=== PATIENT | female | born 1970 | race African-American/Black ===

== ENCOUNTER 2016-11-06 15:07 | Emergency (ER) | payer MEDICARE, MEDICAID ==
[~2016-11-06] VITALS: Ht 167.6 cm; Wt 85.0 kg
--- NOTE | 2016-11-06 15:25 | PD ---
Physical Exam Date Seen by Provider: Nov 06, 2016 Time Seen by Provider: 15:24 MDM Supervised Visit with RYAN: No Narrative Course 38-year-old female presents to the ED for evaluation of one year history of 6/ 10 generalized abdominal pain. Denies nausea, vomiting, diarrhea. Also complains of chronic headaches. Vitals reviewed. Patient seen in triage, awaiting bed placement. Laurence Vinson Nov 06, 2016 15:25
[2016-11-06] MEDS ORDERED: RETR100C PO (16:22)
[2016-11-06] MEDS ORDERED: EMTR1TAB PO (16:22)
[2016-11-06] MEDS ORDERED: EMTR1TAB5 PO (16:22)
[2016-11-06] MEDS ORDERED: AMLO5 PO (16:22)
[2016-11-06] MEDS ORDERED: RITO100 PO (16:23)
[2016-11-06 16:34] VITALS: BP 126/76; PULSE 89; RESP 17; TEMP 97.8; O2SAT 100
[2016-11-06] MEDS ORDERED: SODIUM CHLOR 0.9% 1000 ML INJ 1,000 ML IV SCH (17:25)
[2016-11-06 17:30] VITALS: PULSE 76; RESP 17; O2SAT 100
[2016-11-06] MEDS ORDERED: FAMOTIDINE 20 MG/2 ML VIAL IV PUSH ONE (17:30)
[2016-11-06] MEDS ORDERED: KETOROLAC TROMETHAMINE 30 MG/ML (IVP) VIAL IVP ONE (17:30)
[2016-11-06] MEDS ORDERED: SODIUM CHLORIDE 0.9% FLUSH 10 ML FLUSH IV FLUSH PRN (17:30)
[2016-11-06 18:18] LABS: AUTOMATED NEUTROPHIL # 8.1 TH/MM3 (1.8-7.7); BASOPHIL % 0.4 % (0.0-2.0); EOSINOPHIL # 0.2 TH/MM3 (0-0.4); EOSINOPHIL % 1.4 % (0.0-4.0); HEMATOCRIT 40.6 % (35.0-46.0); HEMO FLAGS DIFF FINAL; LYMPH % 16.9 % (9.0-44.0); LYMPHOCYTE # 1.9 TH/MM3 (1.0-4.8); MEAN CELL VOLUME 89.9 FL (80.0-100.0); MEAN CORPUSCULAR HEMOGLOBIN 29.8 PG (27.0-34.0); MEAN CORPUSCULAR HGB CONC 33.2 % (32.0-36.0); NEUT % 71.3 % (16.0-70.0); PLATELET COUNT 208 TH/MM3 (150-450); RED BLOOD COUNT 4.51 MIL/MM3 (4.00-5.30); RED CELL DISTRIBUTION WIDTH 13.5 % (11.6-17.2); WHITE BLOOD COUNT 11.4 TH/MM3 (4.0-11.0)
--- NOTE | 2016-11-06 18:22 | PD ---
HPI Chief Complaint: Abdominal Pain Time Seen by Provider: 17:14 Travel History International Travel<30 days: No Contact w/Intl Traveler<30days: No Traveled to known affect area: No History of Present Illness HPI Patient is a 46 year old female, with history of psychiatric illness, who comes in complaining of abdominal pain. She says she is homeless and has no place to stay. She says she has had the pain for the past month. She says she has seen multiple doctors and had multiple tests done, but no one can tell her what is wrong. She says "I feel like something is in my uterus," but she has had a hysterectomy. She denies any burning on urination. She denies fever or chills or nausea or vomiting. PFSH Past Medical History Diminished Hearing: No Immune Disorder: Yes (HIV 1999) Medical other: Yes Tetanus Vaccination: < 5 Years Influenza Vaccination: Yes ?: Not : 2 Para: 2 Past Surgical History Gynecologic Surgery: Yes Hysterectomy: Yes Social History Alcohol Use: Yes (ocassionally) Tobacco Use: Yes (1/2 pack per day) Substance Use: No (in the past ) Allergies-Medications (Allergen,Severity, Reaction): Coded Allergies: No Known Allergies (Unverified , 11/06/16) Reported Meds & Prescriptions Reported Meds & Active Scripts Active Reported Norvir (Ritonavir) 100 Mg Cap 300 Mg PO BID Truvada (Emtricitabine-Tenofovir Disoproxil Fumarate) 100-150 Mg Tab 1 Tab PO DAILY Retrovir (Zidovudine) 100 Mg Cap 300 Mg PO Q12HR *Fill this prescription for a 23 day supply of Retrovir ONLY if advised to do so by either [facility] OR the Emergency Department.* Review of Systems Except as stated in HPI: all other systems reviewed are Neg General / Constitutional: No: Fever, Chills HENT: No: Headaches, Lightheadedness Cardiovascular: No: Chest Pain or Discomfort Respiratory: No: Shortness of Breath Gastrointestinal: Positive: Abdominal Pain, No: Nausea, Vomiting Genitourinary: No: Dysuria Musculoskeletal: No: Myalgias, Edema Skin: No Rash, No Change in Pigmentation Neurologic: No: Weakness, Dizziness Physical Exam Narrative GENERAL: Awake and alert, in no acute distress. SKIN: Focused skin assessment warm/dry. HEAD: Atraumatic. Normocephalic. EYES: Pupils equal and round. No scleral icterus. Extraocular movements intact. ENT: Mucous membranes pink and moist. NECK: Trachea midline. No JVD. CARDIOVASCULAR: Regular rate and rhythm. No murmur appreciated. RESPIRATORY: No accessory muscle use. Clear to auscultation. Breath sounds equal bilaterally. GASTROINTESTINAL: Abdomen soft, non-tender, nondistended. No CVA tenderness. MUSCULOSKELETAL: No obvious deformities. No clubbing. No cyanosis. No edema. NEUROLOGICAL: Awake and alert. No obvious cranial nerve deficits. Motor grossly within normal limits. Normal speech. PSYCHIATRIC: Appropriate mood and affect; insight and judgment normal. Data Data Last Documented VS Vital Signs Date Time Temp Pulse Resp B/P (MAP) Pulse Ox O2 Delivery O2 Flow Rate FiO2 11/06/16 18:56 17 11/06/16 17:30 76 100 11/06/16 16:34 97.8 Room Air Orders Orders Complete Blood Count With Diff (11/06/16 17:25) Comprehensive Metabolic Panel (11/06/16 17:25) Lipase (11/06/16 17:25) Urinalysis - C+S If Indicated (11/06/16 17:25) Iv Access Insert/Monitor (11/06/16 17:25) Ecg Monitoring (11/06/16 17:25) Oximetry (11/06/16 17:25) Sodium Chlor 0.9% 1000 Ml Inj (Ns 1000 M (11/06/16 17:25) Sodium Chloride 0.9% Flush (Ns Flush) (11/06/16 17:30) Famotidine Inj (Pepcid Inj) (11/06/16 17:30) Ketorolac Inj (Toradol Inj) (11/06/16 17:30) Urine Culture (11/06/16 17:50) Labs Laboratory Tests Test 11/06/16 17:50 White Blood Count 11.4 TH/MM3 Red Blood Count 4.51 MIL/MM3 Hemoglobin 13.5 GM/DL Hematocrit 40.6 % Mean Corpuscular Volume 89.9 FL Mean Corpuscular Hemoglobin 29.8 PG Mean Corpuscular Hemoglobin Concent 33.2 % Red Cell Distribution Width 13.5 % Platelet Count 208 TH/MM3 Mean Platelet Volume 9.9 FL Neutrophils (%) (Auto) 71.3 % Lymphocytes (%) (Auto) 16.9 % Monocytes (%) (Auto) 10.0 % Eosinophils (%) (Auto) 1.4 % Basophils (%) (Auto) 0.4 % Neutrophils # (Auto) 8.1 TH/MM3 Lymphocytes # (Auto) 1.9 TH/MM3 Monocytes # (Auto) 1.1 TH/MM3 Eosinophils # (Auto) 0.2 TH/MM3 Basophils # (Auto) 0.0 TH/MM3 CBC Comment DIFF FINAL Differential Comment Urine Color YELLOW Urine Turbidity HAZY Urine pH 5.5 Urine Specific [place] 1.031 Urine Protein TRACE mg/dL Urine Glucose (UA) NEG mg/dL Urine Ketones 10 mg/dL Urine Occult Blood NEG Urine Nitrite NEG Urine Bilirubin NEG Urine Urobilinogen LESS THAN 2.0 MG/DL Urine Leukocyte Esterase MOD Urine WBC 16 /hpf Urine Squamous Epithelial Cells 30 /hpf Urine Bacteria MANY /hpf Urine Mucus MANY /lpf Microscopic Urinalysis Comment CULTURE INDICATED Blood Urea Nitrogen 14 MG/DL Creatinine 0.84 MG/DL Random Glucose 83 MG/DL Total Protein 8.4 GM/DL Albumin 4.1 GM/DL Calcium Level 8.9 MG/DL Alkaline Phosphatase 124 U/L Aspartate Amino Transf (AST/SGOT) 20 U/L Alanine Aminotransferase (ALT/SGPT) 24 U/L Total Bilirubin 1.9 MG/DL Sodium Level 135 MEQ/L Potassium Level 4.0 MEQ/L Chloride Level 103 MEQ/L Carbon Dioxide Level 27.7 MEQ/L Anion Gap 4 MEQ/L Estimat Glomerular Filtration Rate 88 ML/MIN Lipase 208 U/L [facility] Medical Decision Making Medical Screen Exam Complete: Yes Emergency Medical Condition: Yes Differential Diagnosis UTI versus colitis versus GERD Narrative Course Patient is a 46-year-old female comes in complaining of lower abdominal pain. Exam shows no acute abnormalities. IV established, labs sent. Patient given IV fluids, famotidine, Toradol. Labs show a slight elevation in total bilirubin. Patient has no right upper quadrant abdominal tenderness. Urinalysis is positive for UTI. Patient will be discharged with a prescription for Bactrim. She is advised follow-up with the [facility]. Advised to return to the ED as needed for any worsening symptoms. Diagnosis Primary Impression: Urinary tract infection Qualified Codes: N30.00 - Acute cystitis without hematuria Referrals: [facility] call for appointment Patient Instructions: General Instructions, Urinary Tract Infection in Women ( ED) Additional Instructions: Follow up at the [place] [facility]. Take all of your antibiotic. Return to the ED as needed for any worsening symptoms. Scripts Sulfamethoxazole-Trimethoprim (Bactrim DS) 800-160 Mg Tab 1 TAB PO BID for Infection, #6 TAB 0 Refills Prov: Imelda Call MD 11/06/16 Disposition: 01 DISCHARGE HOME Condition: Stable Imelda Call MD Nov 06, 2016 18:22
[2016-11-06 18:31] LABS: BACTERIA, URINE MANY /hpf; BLOOD, URINE NEG (NEG); COMMENT (UR) CULTURE INDICATED; CULTURE IF INDICATED CULTURE INDICATED; GLUCOSE,URINE NEG (NEG); KETONE, URINE 10 mg/dL (NEG); MUCUS URINE MANY /lpf (OCC); NITRITE,URINE NEG (NEG); PH, URINE 5.5 (5.0-8.5); SQUAMOUS EPITHELIAL CELL URINE 30 /hpf (0-5); URINE COLOR YELLOW (YELLW/STRAW)
[2016-11-06 18:42] LABS: ALKALINE PHOSPHATASE 124 U/L (45-117); TOTAL BILIRUBIN ADULT 1.9 MG/DL (0.2-1.0)
[2016-11-06 18:44] LABS: ALT (GPT) 24 U/L (10-53); ANION GAP 4 MEQ/L (5-15); AST (GOT) 20 U/L (15-37); BICARBONATE 27.7 MEQ/L (21.0-32.0); BLOOD UREA NITROGEN 14 MG/DL (7-18); CHLORIDE 103 MEQ/L (98-107); GLOMERULAR FILTRATION RATE 88 ML/MIN (>89); SODIUM (NA) 135 MEQ/L (136-145)
[2016-11-06] MEDS ORDERED: BACT800T5 PO (19:07)
[2016-11-06 19:19] VITALS: BP 117/55; PULSE 86; RESP 14; O2SAT 100
== END 2016-11-06 20:20 | disposition home or self-care (01) ==
LOC: NEPD 15:07
DX: N39.0 Urinary tract infection, site not specified (principal); Z59.0 Homelessness; Z21 Asymptomatic human immunodeficiency virus [HIV] infection status; Z79.899 Other long term (current) drug therapy
CPT/HCPCS: 80053; 81001; 83690; 85025; 87086; 96361; 96374; 96375; 99284; J1885; J7030

== ENCOUNTER 2016-11-14 12:19 | Emergency (ER) | payer MEDICARE, MEDICAID ==
[~2016-11-14] VITALS: Ht 167.6 cm; Wt 75.0 kg
[~2016-11-14 12:19] MED LIST: BACT800T5 PO; EMTR1TAB5 PO; RETR100C PO; RITO100 PO
[2016-11-14 12:26] VITALS: BP 117/84; PULSE 82; RESP 16; TEMP 98.5; O2SAT 96
== END 2016-11-14 14:28 | disposition left against medical advice (07) ==
LOC: NEDAMB 12:19
DX: R68.89 Other general symptoms and signs (principal)
CPT/HCPCS: 99281